=== PATIENT | female | born 1940 | race Caucasian/White ===

== ENCOUNTER 2018-10-31 09:44 | Observation (INO) ==
[2018-10-31 10:03] LABS: Mean Corpuscular Volume 74.1 fL (83.0-100.0); Mean Platelet Volume 8.1 fL (9.4-12.4); Platelet Count 496 K/mcL (140-400); Red Cell Distribution Width 15.7 % (11.5-14.5); White Blood Count 8.1 K/mcL (4.3-11.1)
[2018-10-31 10:07] LABS: INR 1.1; Prothrombin Time 12.8 Seconds (9.4-12.1)
[2018-10-31 10:10] LABS: Activated Partial Thrombo Time 35.9 Seconds (26.0-36.0)
[2018-10-31 10:24] LABS: BUN/Creatinine Ratio 18 (6-26); Blood Urea Nitrogen 22 mg/dL (8-23); Calcium 9.3 mg/dL (8.6-10.3); Carbon Dioxide 27 mEq/L (23-29); Chloride 105 mEq/L (98-107); Glucose 99 mg/dL (70-105); Osmolality,Calculated 287 (280-300); Potassium 4.4 mEq/L (3.5-5.1); Sodium 137 mEq/L (136-145); Troponin I < 0.03 ng/mL (< 0.04); eGFR For African Americans 50 (> 60); eGFR For Non-African Americans 42 (> 60)
[2018-10-31 10:26] LABS: Hemoglobin 5.4 g/dL (11.5-15.4)
[2018-10-31 12:02] LABS: Bilirubin,Urine Negative (Negative); Blood,Urine Negative (Negative); Clarity,Urine Clear (Clear); Color,Urine Yellow (Yellow); Glucose,Urine (UA) Normal (Normal); Ketones,Urine Negative (Negative); Leukocyte Esterase,Urine Small (Negative); Nitrite,Urine Negative (Negative); Protein,Urine Trace mg/dL (Neg-Trace); Specific Gravity,Urine 1.016 (1.010-1.025); Urobilinogen,Urine Normal (Normal)
[2018-10-31 12:08] LABS: Bacteria,Urine None Seen per hpf (None-Few); Hyaline Casts,Urine None Seen per lpf (None-Few); Squamous Epithelial Cell,Urine Many per lpf (None-Few)
[2018-10-31] MEDS ORDERED: Carbidopa/Levodopa 25/100 TABLET PO ONE (13:23)
[2018-10-31] MEDS ORDERED: 0.9 % Sodium Chloride 250 ML ONE (13:35)
[2018-10-31] MEDS ORDERED: Ondansetron 4 MG/2 ML VIAL IVP PRN (14:23)
[2018-10-31] MEDS ORDERED: Naloxone 0.4 MG/ML INJ IVP PRN (14:23)
[2018-10-31] MEDS ORDERED: Acetaminophen 325 MG TABLET PO ONE (17:13)
[2018-10-31] MEDS: 0.9 % Sodium Chloride 1,000 ML IVC SCH (17:17)
[2018-10-31] MEDS: Carbidopa/Levodopa 25/100 TABLET PO SCH ×2 (17:18→22:43)
[2018-10-31] MEDS: Pantoprazole 40 MG VIAL IVP SCH (17:31)
[2018-10-31 19:28] LABS: Hematocrit 24.1 % (35.3-44.9); Hemoglobin 6.9 g/dL (11.5-15.4)
[2018-10-31 19:46] LABS: Chol/HDL Ratio 2.4 (0-4.9); Cholesterol 133 mg/dL (< 200); HDL Cholesterol 56 mg/dL (40-59); LDL Cholesterol,Calculated 62 mg/dL (0-99); Magnesium 2.3 mg/dL (1.6-2.6); Phosphorous 3.1 mg/dL (2.7-4.5); Triglycerides 75 mg/dL (< 150)
[2018-10-31 19:47] LABS: Troponin I < 0.03 ng/mL (< 0.04)
[2018-10-31] MEDS ORDERED: 0.9 % Sodium Chloride 500 ML ONE (22:26)
[2018-10-31] MEDS: PARoxetine 20 MG TABLET PO SCH (22:43)
[2018-11-01 02:55] LABS: Basophils % 0.5 %; Eosinophils # 0.2 K/mcL (0.0-0.6); Eosinophils % 3.7 %; Hematocrit 25.7 % (35.3-44.9); Hemoglobin 7.5 g/dL (11.5-15.4); Immature Granulocytes % 0.3 % (0-4); Lymphocytes # 1.3 K/mcL (0.6-4.6); Lymphocytes % 19.1 %; Mean Corpuscular HGB Conc 29.2 g/dL (31.6-35.5); Mean Corpuscular Hemoglobin 22.6 pg (28.0-33.3); Mean Corpuscular Volume 77.4 fL (83.0-100.0); Mean Platelet Volume 8.4 fL (9.4-12.4); Monocytes % 15.2 %; Nucleated Red Blood Cells 0.3 /100 WBC (0); Platelet Count 466 K/mcL (140-400); Red Blood Count 3.32 M/mcL (3.82-4.97); Red Cell Distribution Width 17.9 % (11.5-14.5); Segmented Neutrophils % 61.2 %; White Blood Count 6.6 K/mcL (4.3-11.1)
[2018-11-01 03:18] LABS: Alanine Aminotransferase 4 Units/L (7-52); Albumin 3.7 g/dL (3.5-5.7); Albumin/Globulin Ratio 1.3 (1.1-2.2); Alkaline Phosphatase 79 Units/L (34-104); Aspartate Amino Transferase 16 Units/L (13-39); BUN/Creatinine Ratio 15 (6-26); Bilirubin,Total 0.8 mg/dL (0.3-1.0); Blood Urea Nitrogen 15 mg/dL (8-23); Calcium 8.9 mg/dL (8.6-10.3); Carbon Dioxide 27 mEq/L (23-29); Chloride 106 mEq/L (98-107); Globulin 2.9 g/dL (2.4-3.5); Glucose 91 mg/dL (70-105); Osmolality,Calculated 290 (280-300); Potassium 3.8 mEq/L (3.5-5.1); Sodium 140 mEq/L (136-145); Total Protein 6.6 g/dL (6.4-8.9); eGFR For African Americans > 60 (> 60); eGFR For Non-African Americans 55 (> 60)
[2018-11-01] MEDS: Pantoprazole 40 MG VIAL IVP SCH ×2 (05:48→17:11)
[2018-11-01] MEDS ORDERED: Gabapentin 300 MG CAPSULE PO ONE (07:01)
[2018-11-01] MEDS: amLODIPine 5 MG TABLET PO SCH (08:44)
[2018-11-01] MEDS: *HR* LORazepam 1 MG TABLET PO SCH ×2 (08:44→21:32)
[2018-11-01] MEDS: Carbidopa/Levodopa 25/100 TABLET PO SCH ×3 (08:44→21:33)
[2018-11-01] MEDS: 0.9 % Sodium Chloride 1,000 ML IVC SCH (10:24)
[2018-11-01 10:37] LABS: % Iron Saturation 3 % (15-50); Iron 16 mcg/dL (50-170); Transferrin 387 mg/dL (203-362)
[2018-11-01 10:55] LABS: Ferritin < 8 ng/mL (10-120)
[2018-11-01 10:58] LABS: Folate 15.1 ng/mL (3.0-16.0)
[2018-11-01] MEDS ORDERED: 0.9 % Sodium Chloride 250 ML ONE (13:20)
[2018-11-01] MEDS ORDERED: SODIUM CHLORIDE/NAHCO3/KCL/PEG 4,000 ML SOLN.RECON PO ONE (17:00)
[2018-11-01 20:33] LABS: Hematocrit 33.3 % (35.3-44.9)
[2018-11-01 20:37] LABS: Hemoglobin 9.9 g/dL (11.5-15.4)
[2018-11-01] MEDS ORDERED: Gabapentin 300 MG CAPSULE PO SCH (21:00)
[2018-11-01] MEDS: PARoxetine 20 MG TABLET PO SCH (21:33)
[2018-11-02] MEDS: Pantoprazole 40 MG VIAL IVP SCH (05:51)
[2018-11-02] MEDS ORDERED: Acetaminophen IV 500 MG/50 ML INFUS..BTL IVPB ONE (06:52)
[2018-11-02] MEDS: Carbidopa/Levodopa 25/100 TABLET PO SCH ×2 (07:32→14:27)
[2018-11-02] MEDS: amLODIPine 5 MG TABLET PO SCH (07:32)
[2018-11-02] MEDS: *HR* LORazepam 1 MG TABLET PO SCH (07:32)
[2018-11-02] MEDS ORDERED: Propofol 500 MG/50 ML INFUS..BTL ONE (12:28)
[2018-11-02] MEDS ORDERED: Lidocaine -MPF 2% 2 ML VIAL ONE (12:30)
[2018-11-02 15:21] VITALS: BP 140/94
[2018-11-02] MEDS ORDERED: Pregabalin 25 MG CAPSULE PO SCH (21:00)
== END 2018-11-02 16:46 | disposition home or self-care (01) ==
LOC: EMEROOARM 09:44 → 2NENU 09:44
PROVIDERS: ADMIT Internal Medicine Nephrology; ATTEND Internal Medicine Nephrology
PROC: ENDOEBX (2018-11-02 13:00)

== ENCOUNTER 2019-12-08 12:52 | Inpatient (IN) ==
[2019-12-08 14:04] LABS: Basophils % 0.6 %; Eosinophils # 0.2 K/mcL (0.0-0.6); Eosinophils % 2.9 %; Hematocrit 34.5 % (35.3-44.9); Immature Granulocytes % 0.4 % (0-4); Lymphocytes # 1.7 K/mcL (0.6-4.6); Lymphocytes % 24.3 %; Mean Corpuscular Hemoglobin 23.6 pg (28.0-33.3); Mean Corpuscular Volume 81.4 fL (83.0-100.0); Mean Platelet Volume 9.6 fL (9.4-12.4); Monocytes # 0.9 K/mcL (0.0-1.3); Monocytes % 12.3 %; Neutrophils # 4.2 K/mcL (1.6-8.9); Platelet Count 349 K/mcL (140-400); Red Blood Count 4.24 M/mcL (3.82-4.97); Red Cell Distribution Width 15.7 % (11.5-14.5); Segmented Neutrophils % 59.5 %
[2019-12-08 14:25] LABS: Alanine Aminotransferase 6 Units/L (7-52); Albumin 4.1 g/dL (3.5-5.7); Albumin/Globulin Ratio 1.4 (1.1-2.2); Alkaline Phosphatase 84 Units/L (34-104); Aspartate Amino Transferase 23 Units/L (13-39); BUN/Creatinine Ratio 26 (6-26); Bilirubin,Total 0.5 mg/dL (0.3-1.0); Blood Urea Nitrogen 39 mg/dL (8-23); Calcium 9.6 mg/dL (8.6-10.3); Carbon Dioxide 29 mEq/L (23-29); Chloride 103 mEq/L (98-107); Globulin 2.9 g/dL (2.4-3.5); Glucose 96 mg/dL (70-105); Osmolality,Calculated 301 (280-300); Potassium 3.7 mEq/L (3.5-5.1); Sodium 141 mEq/L (136-145); Troponin I < 0.03 ng/mL (< 0.04); eGFR For African Americans 41 (> 60); eGFR For Non-African Americans 34 (> 60)
[2019-12-08 14:29] LABS: Thyroid Stimulating Hormone 3.385 mcIU/mL (0.340-5.600)
[2019-12-08] MEDS ORDERED: 0.9 % Sodium Chloride 1,000 ML IVC ONE (14:31)
[2019-12-08] MEDS ORDERED: Aspirin 81 MG TAB.CHEW PO ONE (14:34)
[2019-12-08 15:43] LABS: Bilirubin,Urine Negative (Negative); Blood,Urine Trace (Negative); Clarity,Urine Clear (Clear); Color,Urine Light-Yellow (Yellow); Glucose,Urine (UA) Normal (Normal); Hyaline Casts,Urine Few per lpf (None Seen); Ketones,Urine Negative (Negative); Leukocyte Esterase,Urine Large (Negative); Mucus,Urine Few per lpf (None-Few); Nitrite,Urine Negative (Negative); Protein,Urine Trace mg/dL (Neg-Trace); Renal Epithelial Cells,Urine Moderate per hpf (None-Few); Specific Gravity,Urine 1.021 (1.010-1.025); Squamous Epithelial Cell,Urine Moderate per hpf (None-Few); Transitional Epi Cells,Urine Moderate per hpf (None-Few); Urobilinogen,Urine Normal (Normal); WBC,Urine 30-50 per hpf (0-3)
[2019-12-08] MEDS ORDERED: Ondansetron 4 MG/2 ML VIAL IVP PRN (16:22)
[2019-12-08] MEDS ORDERED: Naloxone 0.4 MG/ML INJ IVP PRN (16:22)
[2019-12-08] MEDS ORDERED: Mag Hydrox/Al Hydrox/Simeth 30 ML UDC PO PRN (16:22)
[2019-12-08] MEDS ORDERED: *HR* Promethazine 25 MG/ML VIAL IVP PRN (16:22)
[2019-12-08] MEDS ORDERED: MOM Conc 10 ML UD.LIQ PO PRN (16:22)
[2019-12-08] MEDS: *HR* Heparin 5,000 UNIT/ML VIAL SQ SCH (18:51)
[2019-12-08] MEDS: cefTRIAXone 1,000 MG in Water for inj. (sterile) 10 ML IVP SCH (18:51)
[2019-12-08] MEDS: Carbidopa/Levodopa 25/100 TABLET PO SCH (21:23)
[2019-12-08] MEDS: *HR* LORazepam 1 MG TABLET PO SCH (21:23)
[2019-12-08] MEDS: Gabapentin 300 MG CAPSULE PO SCH (21:23)
[2019-12-08] MEDS: PARoxetine HCL 10 MG TABLET PO SCH (21:24)
[2019-12-09 01:21] LABS: Basophils % 0.7 %; Eosinophils # 0.2 K/mcL (0.0-0.6); Eosinophils % 4.1 %; Hematocrit 31.1 % (35.3-44.9); Hemoglobin 9.1 g/dL (11.5-15.4); Immature Granulocytes % 0.2 % (0-4); Lymphocytes # 1.6 K/mcL (0.6-4.6); Lymphocytes % 27.6 %; Mean Corpuscular HGB Conc 29.3 g/dL (31.6-35.5); Mean Corpuscular Hemoglobin 23.8 pg (28.0-33.3); Mean Corpuscular Volume 81.2 fL (83.0-100.0); Mean Platelet Volume 9.6 fL (9.4-12.4); Monocytes # 0.8 K/mcL (0.0-1.3); Monocytes % 14.5 %; Platelet Count 322 K/mcL (140-400); Red Blood Count 3.83 M/mcL (3.82-4.97); Red Cell Distribution Width 15.7 % (11.5-14.5); Segmented Neutrophils % 52.9 %; White Blood Count 5.7 K/mcL (4.3-11.1)
[2019-12-09 01:40] LABS: Chol/HDL Ratio 2.1 (0-4.9); Magnesium 2.1 mg/dL (1.6-2.6); Phosphorous 3.8 mg/dL (2.7-4.5); Potassium 4.1 mEq/L (3.5-5.1)
[2019-12-09 01:45] LABS: % Iron Saturation 4 % (15-50); Iron 16 mcg/dL (50-170); Transferrin 314 mg/dL (203-362)
[2019-12-09 02:00] LABS: Ferritin < 8 ng/mL (10-120)
[2019-12-09] MEDS: *HR* Heparin 5,000 UNIT/ML VIAL SQ SCH ×2 (06:01→17:32)
[2019-12-09] MEDS: rOPINIRole 0.25 MG TABLET PO SCH (08:09)
[2019-12-09] MEDS: Iron Sucrose Complex 250 MG in 0.9 % Sodium Chloride 250 ML IVPB SCH (08:09)
[2019-12-09] MEDS: Carbidopa/Levodopa 25/100 TABLET PO SCH ×3 (08:09→20:37)
[2019-12-09] MEDS: amLODIPine 5 MG TABLET PO SCH (08:09)
[2019-12-09] MEDS: *HR* LORazepam 1 MG TABLET PO SCH ×2 (08:09→20:37)
[2019-12-09] MEDS: Acetaminophen 325 MG TABLET PO PRN ×2 (08:14→17:32)
[2019-12-09] MEDS: cefTRIAXone 1,000 MG in Water for inj. (sterile) 10 ML IVP SCH (17:32)
[2019-12-09] MEDS: PARoxetine HCL 10 MG TABLET PO SCH (20:38)
[2019-12-09] MEDS: Gabapentin 300 MG CAPSULE PO SCH (20:38)
[2019-12-10] MEDS: Acetaminophen 325 MG TABLET PO PRN ×2 (02:57→20:07)
[2019-12-10] MEDS: *HR* Heparin 5,000 UNIT/ML VIAL SQ SCH ×2 (07:14→18:02)
[2019-12-10] MEDS: amLODIPine 5 MG TABLET PO SCH (09:53)
[2019-12-10] MEDS: Carbidopa/Levodopa 25/100 TABLET PO SCH ×3 (09:53→20:01)
[2019-12-10] MEDS: rOPINIRole 0.25 MG TABLET PO SCH (09:53)
[2019-12-10] MEDS: *HR* LORazepam 1 MG TABLET PO SCH ×2 (09:53→20:01)
[2019-12-10] MEDS ORDERED: Iron Sucrose Complex 400 MG in 0.9 % Sodium Chloride 250 ML IVPB ONE (11:01)
[2019-12-10] MEDS: Budesonide/Formoterol 80/4.5 1 PUFF INH IH SCH ×2 (11:32→20:16)
[2019-12-10] MEDS: Iron Sucrose Complex 250 MG in 0.9 % Sodium Chloride 250 ML IVPB SCH (12:55)
[2019-12-10] MEDS: Amoxicillin 250 MG CHEWABLE TABLET PO SCH (20:00)
[2019-12-10] MEDS: Gabapentin 300 MG CAPSULE PO SCH (20:00)
[2019-12-10] MEDS: PARoxetine HCL 10 MG TABLET PO SCH (20:01)
[2019-12-11 01:55] LABS: Mean Platelet Volume 9.5 fL (9.4-12.4)
[2019-12-11 01:56] LABS: Hematocrit 30.8 % (35.3-44.9); Hemoglobin 8.8 g/dL (11.5-15.4); Mean Corpuscular HGB Conc 28.6 g/dL (31.6-35.5); Mean Corpuscular Hemoglobin 23.3 pg (28.0-33.3); Mean Corpuscular Volume 81.5 fL (83.0-100.0); Platelet Count 316 K/mcL (140-400); Red Blood Count 3.78 M/mcL (3.82-4.97); Red Cell Distribution Width 15.8 % (11.5-14.5); White Blood Count 6.8 K/mcL (4.3-11.1)
[2019-12-11 02:12] LABS: Calcium 8.8 mg/dL (8.6-10.3); Potassium 4.1 mEq/L (3.5-5.1)
[2019-12-11] MEDS: *HR* Heparin 5,000 UNIT/ML VIAL SQ SCH (05:43)
[2019-12-11 06:40] VITALS: BP 169/94
[2019-12-11] MEDS: Budesonide/Formoterol 80/4.5 1 PUFF INH IH SCH (07:27)
[2019-12-11] MEDS: Amoxicillin 250 MG CHEWABLE TABLET PO SCH (09:38)
[2019-12-11] MEDS: *HR* LORazepam 1 MG TABLET PO SCH (09:38)
[2019-12-11] MEDS: rOPINIRole 0.25 MG TABLET PO SCH (09:38)
[2019-12-11] MEDS: amLODIPine 5 MG TABLET PO SCH (09:38)
[2019-12-11] MEDS: Carbidopa/Levodopa 25/100 TABLET PO SCH (09:38)
[2019-12-11] MEDS ORDERED: Benzonatate 100 MG CAPSULE PO PRN (09:52)
[2019-12-11 10:22] LABS: % Iron Saturation 107 % (15-50); Iron 467 mcg/dL (50-170); Transferrin 311 mg/dL (203-362)
[2019-12-11 10:39] LABS: Ferritin 306 ng/mL (10-120)
== END 2019-12-11 12:27 | disposition home or self-care (01) | DRG 92 ==
LOC: 3BNU 12:52 → EMEROOARM 12:52 → 3BNU 17:14
PROVIDERS: ADMIT Internal Medicine; ATTEND Internal Medicine

== ENCOUNTER 2021-01-25 20:12 | Inpatient (IN) ==
[2021-01-25 21:02] LABS: Basophils # 0.1 K/mcL (0.0-0.2); Basophils % 0.6 %; Eosinophils # 0.3 K/mcL (0.0-0.6); Eosinophils % 3.3 %; Immature Granulocytes % 0.5 % (0-4); Lymphocytes # 2.3 K/mcL (0.6-4.6); Lymphocytes % 27.8 %; Mean Corpuscular HGB Conc 31.8 g/dL (31.6-35.5); Mean Corpuscular Hemoglobin 31.2 pg (28.0-33.3); Mean Platelet Volume 9.4 fL (9.4-12.4); Monocytes % 11.6 %; Neutrophils # 4.7 K/mcL (1.6-8.9); Platelet Count 330 K/mcL (140-400); Red Blood Count 4.49 M/mcL (3.82-4.97); Red Cell Distribution Width 13.8 % (11.5-14.5); Segmented Neutrophils % 56.2 %; White Blood Count 8.3 K/mcL (4.3-11.1)
[2021-01-25] MEDS ORDERED: 0.9 % Sodium Chloride 500 ML IV ONE ×2 (21:25→22:24)
[2021-01-25 21:40] LABS: Alanine Aminotransferase 8 Units/L (7-52); Albumin 4.2 g/dL (3.5-5.7); Albumin/Globulin Ratio 1.5 (1.1-2.2); Alkaline Phosphatase 200 Units/L (34-104); Aspartate Amino Transferase 38 Units/L (13-39); BUN/Creatinine Ratio 18 (6-26); Bilirubin,Direct 0.1 mg/dL (0.0-0.2); Bilirubin,Indirect 0.3 mg/dL (0.0-1.0); Bilirubin,Total 0.4 mg/dL (0.3-1.0); Blood Urea Nitrogen 25 mg/dL (8-23); Calcium 9.6 mg/dL (8.6-10.3); Carbon Dioxide 23 mEq/L (23-29); Chloride 107 mEq/L (98-107); Ethanol < 10 mg/dL (Less than 10); Globulin 2.8 g/dL (2.4-3.5); Glucose 84 mg/dL (70-105); Lipase 161 Units/L (11-82); Osmolality,Calculated 296 (280-300); Potassium 4.5 mEq/L (3.5-5.1); Sodium 141 mEq/L (136-145); Troponin I < 0.03 ng/mL (< 0.04); eGFR For African Americans 45 (> 60); eGFR For Non-African Americans 37 (> 60)
[2021-01-25 21:54] LABS: Influenza A PCR Negative (Negative); Influenza B PCR Negative (Negative); Resp. Syncytial Virus PCR Negative (Negative)
[2021-01-25 21:54] LABS: Bilirubin,Urine Negative (Negative); Blood,Urine Large (Negative); Clarity,Urine Clear (Clear); Color,Urine Light-Yellow (Yellow); Glucose,Urine (UA) Normal (Normal); Ketones,Urine Trace mg/dL (Negative); Leukocyte Esterase,Urine Small (Negative); Mucus,Urine Few per lpf (None-Few); Nitrite,Urine Negative (Negative); PH,Urine 5.5 pH Units (5.0-8.0); Protein,Urine Trace mg/dL (Neg-Trace); RBC,Urine TNTC per hpf (0-3); Specific Gravity,Urine 1.021 (1.010-1.025); Squamous Epithelial Cell,Urine Few per hpf (None-Few); Urobilinogen,Urine Normal (Normal)
[2021-01-25 22:10] LABS: Amphetamine Screen,Urine Negative ng/mL (Cutoff=1000); Barbiturate Screen,Urine Negative ng/mL (Cutoff=200); Benzodiazepines Screen,Urine Negative ng/mL (Cutoff=200); Cannabinoid Screen,Urine Negative ng/mL (Cutoff = 50); Cocaine Screen,Urine Negative ng/mL (Cutoff= 300); Opiate Screen,Urine Positive ng/mL (Cutoff=300); Phencyclidine Screen,Urine Negative ng/mL (Cutoff=25)
[2021-01-25 22:26] LABS: SARS-CoV-2 by PCR (In House) Negative (Negative)
[2021-01-26] MEDS ORDERED: cefTRIAXone 1,000 MG in Water for inj. (sterile) 10 ML IVP ONE (01:56)
[2021-01-26] MEDS ORDERED: MetroNIDAZOLE 500 MG/100 ML 500 MG/100 ML BAG IVPB ONE (02:42)
[2021-01-26] MEDS ORDERED: Melatonin 3 MG TABLET PO PRN (02:59)
[2021-01-26] MEDS ORDERED: Naloxone 0.4 MG/ML INJ IVP PRN (02:59)
[2021-01-26] MEDS: *HR* Heparin 5,000 UNIT/ML VIAL SQ SCH ×2 (06:47→20:23)
[2021-01-26] MEDS: Carbidopa/Levodopa 25/100 TABLET PO SCH ×5 (13:30→23:03)
[2021-01-26] MEDS: amLODIPine 5 MG TABLET PO SCH (13:30)
[2021-01-26] MEDS ORDERED: 0.9 % Sodium Chloride 1,000 ML IVC SCH (13:30)
[2021-01-26] MEDS: MetroNIDAZOLE 500 MG/100 ML 500 MG/100 ML BAG IVPB SCH ×2 (20:21→22:20)
[2021-01-26] MEDS: Gabapentin 100 MG CAPSULE PO SCH ×2 (20:22→23:03)
[2021-01-26] MEDS: *HR* LORazepam 1 MG TABLET PO SCH (23:02)
[2021-01-26] MEDS: Melatonin 3 MG TABLET PO SCH (23:03)
[2021-01-27 04:16] LABS: Basophils % 0.5 %; Eosinophils # 0.1 K/mcL (0.0-0.6); Eosinophils % 1.2 %; Hematocrit 42.7 % (35.3-44.9); Hemoglobin 13.8 g/dL (11.5-15.4); Immature Granulocytes % 0.5 % (0-4); Lymphocytes # 1.9 K/mcL (0.6-4.6); Lymphocytes % 22.5 %; Mean Corpuscular HGB Conc 32.3 g/dL (31.6-35.5); Mean Platelet Volume 8.8 fL (9.4-12.4); Monocytes # 0.9 K/mcL (0.0-1.3); Monocytes % 10.9 %; Neutrophils # 5.5 K/mcL (1.6-8.9); Platelet Count 330 K/mcL (140-400); Red Blood Count 4.45 M/mcL (3.82-4.97); Red Cell Distribution Width 13.7 % (11.5-14.5); Segmented Neutrophils % 64.4 %; White Blood Count 8.6 K/mcL (4.3-11.1)
[2021-01-27] MEDS: MetroNIDAZOLE 500 MG/100 ML 500 MG/100 ML BAG IVPB SCH ×3 (04:42→20:33)
[2021-01-27 05:16] LABS: BUN/Creatinine Ratio 13 (6-26); Blood Urea Nitrogen 13 mg/dL (8-23); Calcium 8.9 mg/dL (8.6-10.3); Carbon Dioxide 29 mEq/L (23-29); Chloride 107 mEq/L (98-107); Glucose 93 mg/dL (70-105); Magnesium 1.8 mg/dL (1.6-2.6); Osmolality,Calculated 294 (280-300); Potassium 3.4 mEq/L (3.5-5.1); Sodium 142 mEq/L (136-145); eGFR For African Americans > 60 (> 60); eGFR For Non-African Americans 52 (> 60)
[2021-01-27] MEDS: *HR* Heparin 5,000 UNIT/ML VIAL SQ SCH ×2 (05:55→17:57)
[2021-01-27] MEDS ORDERED: amLODIPine 5 MG TABLET PO SCH (09:00)
[2021-01-27] MEDS ORDERED: NON-FORMULARY MEDICATION 1 EACH EACH (Pantoprazole Sodium [Protonix] 40 MG Tablet.Dr) PO SCH (09:00)
[2021-01-27] MEDS: polyethylene glycoL 3350 17 GM POWD.PACK PO SCH (09:25)
[2021-01-27] MEDS: Gabapentin 100 MG CAPSULE PO SCH ×3 (09:26→20:32)
[2021-01-27] MEDS: rOPINIRole 0.25 MG TABLET PO SCH (09:26)
[2021-01-27] MEDS: Cholecalciferol (D-3) 1,000 UNIT (25MCG) TABLET PO SCH (09:26)
[2021-01-27] MEDS: *HR* LORazepam 1 MG TABLET PO SCH ×2 (09:26→20:32)
[2021-01-27] MEDS: Carbidopa/Levodopa 25/100 TABLET PO SCH ×3 (09:26→20:32)
[2021-01-27] MEDS: Aspirin Enteric Coated 81 MG Tablet PO SCH (09:26)
[2021-01-27] MEDS: amLODIPine 5 MG TABLET PO SCH (09:27)
[2021-01-27] MEDS ORDERED: E-Z-HD (BARIUM SULF) SUSPENSION PO ONE (11:03)
[2021-01-27] MEDS ORDERED: E-Z-PAQUE (BARIUM SULF) SUSP 1 BOTTLE PO ONE (11:03)
[2021-01-27] MEDS ORDERED: Simethicone/Sodium Bic/Citr Ac 1 EACH GRAN.EF.PK PO ONE (11:03)
[2021-01-27] MEDS: Melatonin 3 MG TABLET PO SCH (20:32)
[2021-01-28] MEDS: MetroNIDAZOLE 500 MG/100 ML 500 MG/100 ML BAG IVPB SCH (04:29)
[2021-01-28] MEDS: *HR* Heparin 5,000 UNIT/ML VIAL SQ SCH (05:24)
[2021-01-28 05:43] LABS: Basophils # 0.1 K/mcL (0.0-0.2); Basophils % 0.7 %; Eosinophils # 0.4 K/mcL (0.0-0.6); Eosinophils % 4.7 %; Hemoglobin 12.7 g/dL (11.5-15.4); Immature Granulocytes % 0.8 % (0-4); Lymphocytes # 1.8 K/mcL (0.6-4.6); Lymphocytes % 24.5 %; Mean Corpuscular HGB Conc 31.8 g/dL (31.6-35.5); Mean Corpuscular Hemoglobin 30.7 pg (28.0-33.3); Mean Corpuscular Volume 96.6 fL (83.0-100.0); Mean Platelet Volume 9.1 fL (9.4-12.4); Monocytes % 12.7 %; Neutrophils # 4.2 K/mcL (1.6-8.9); Platelet Count 315 K/mcL (140-400); Red Blood Count 4.14 M/mcL (3.82-4.97); Red Cell Distribution Width 14.2 % (11.5-14.5); Segmented Neutrophils % 56.6 %; White Blood Count 7.5 K/mcL (4.3-11.1)
[2021-01-28 06:05] LABS: Calcium 8.9 mg/dL (8.6-10.3); Magnesium 1.8 mg/dL (1.6-2.6); Potassium 3.9 mEq/L (3.5-5.1)
[2021-01-28 06:12] VITALS: BP 129/84; PULSE 74; TEMP 98.4; O2SAT 92
[2021-01-28] MEDS: Cholecalciferol (D-3) 1,000 UNIT (25MCG) TABLET PO SCH (10:13)
[2021-01-28] MEDS: Gabapentin 100 MG CAPSULE PO SCH (10:13)
[2021-01-28] MEDS: polyethylene glycoL 3350 17 GM POWD.PACK PO SCH (10:13)
[2021-01-28] MEDS: rOPINIRole 0.25 MG TABLET PO SCH (10:14)
[2021-01-28] MEDS: amLODIPine 5 MG TABLET PO SCH (10:14)
[2021-01-28] MEDS: Carbidopa/Levodopa 25/100 TABLET PO SCH (10:14)
[2021-01-28] MEDS: Aspirin Enteric Coated 81 MG Tablet PO SCH (10:14)
[2021-01-28] MEDS: *HR* LORazepam 1 MG TABLET PO SCH (10:14)
== END 2021-01-28 10:32 | disposition home or self-care (01) | DRG 689 ==
LOC: 4WAOSI 20:12 → EMEROOARM 20:12 → SUATTDRO 01-26 03:26 → 4WAOSI 01-26 03:58 → 3ANU 01-27 15:24
PROVIDERS: ADMIT Student in an Organized Health Care Education/Training Program; ATTEND Pharmacist